=== PATIENT | male | born 1980 | race African-American/Black ===

== ENCOUNTER 2018-01-04 03:30 | Emergency (ER) | payer BC ==
[2018-01-04] MEDS ORDERED: Sodium Chloride 0.9% 1,000 ML ONE ×2 (04:14→05:35)
[2018-01-04] MEDS ORDERED: Insulin Regular, Human 100 Units/ML 3 ML Vial ONE (04:14)
--- NOTE | 2018-01-04 11:31 | CR ---
Chest: Two views of the chest were obtained. Comparison: No prior chest x-ray. Heart size and mediastinum are normal. Lungs are clear. Bony structures are unremarkable. Impression: 1. Nothing acute is seen on two-view chest x-ray. Diagnostic code #1
== END 2018-01-04 06:40 ==
LOC: JD.ED 03:30
DX: E11.65 Type 2 diabetes mellitus with hyperglycemia (principal); F17.210 Nicotine dependence, cigarettes, uncomplicated; I10 Essential (primary) hypertension; E78.5 Hyperlipidemia, unspecified
CPT/HCPCS: 36415; 71046; 71046-26; 80053; 81001; 82009; 82962; 84484; 85025; 96361; 96374; 96376; 99284; 99285-25